=== PATIENT | female | born 1975 | race Caucasian/White ===

== ENCOUNTER → 2017-09-05 08:24 | Outpatient (CLI) | payer OTHER, SELFPAY ==
--- NOTE | 2017-09-05 08:29 | MM_ITS ---
MM Dig screening mamm BI w/CAD CAD Screening COMPARISON: Digital mammograms with CAD 12/01/2015 and 09/27/2014 INDICATION: There is no personal or family history of breast cancer TECHNIQUE: Standard CC and MLO images were obtained. R2 CAD reviewed. FINDINGS: There is a moderately dense and heterogenic parenchymal pattern somewhat lessening the sensitivity of mammography. The findings about the lateral symmetrical. There is no suspicious lesion in either breast and there are no suspicious microcalcifications. IMPRESSION: Moderate breast density with no suspicious lesion seen BI-RADS Category: 1 Negative RECOMMENDED FOLLOW-UP: 1YR - 1 YEAR FOLLOW-UP (A letter has been sent to the patient regarding results of the study.)
== END ==
PROVIDERS: Family Provider Family Medicine; PCP Family Medicine; Visit Provider Obstetrics & Gynecology Gynecology
DX: Z12.31 Encounter for screening mammogram for malignant neoplasm of breast (principal)
CPT/HCPCS: 77067

== ENCOUNTER → 2017-09-26 10:28 | Outpatient (CLI) | payer OTHER, SELFPAY ==
--- NOTE | 2017-09-26 10:32 | US_ITS ---
US thyroid COMPARISON: None HISTORY: Possible thyromegaly TECHNIQUE: October ultrasound the thyroid FINDINGS: The isthmus of the gland is slightly thickened measuring 0.5 cm in diameter. The right lobe measures 1.9 x 4.7 x 3.5 cm. The left lobe measures 1.6 x 4.2 x 2.0 cm. There is a diffuse heterogenic appearance of the parenchyma in each lobe. There is a hypoechoic nodule mid pole right lobe with homogeneous echogenicity measuring 1.1 x 2.2 x 0.7 cm. There is a second isoechoic nodule mid pole measuring 1.1 x 1.5 x 0.8 cm. There is a small hypoechoic nodule lower pole left lobe measuring 0.7 x 0.5 x 0.5 cm. IMPRESSION: Mild thyromegaly with findings of diffuse goiter in addition to small solid nodules in each lobe as described above
== END ==
PROVIDERS: Family Provider Family Medicine; PCP Family Medicine; Visit Provider Family Medicine
DX: E01.0 Iodine-deficiency related diffuse (endemic) goiter (principal)
CPT/HCPCS: 76536

== ENCOUNTER → 2017-10-06 15:54 | Outpatient (CLI) | payer OTHER, SELFPAY ==
[2017-10-06 18:05] LABS: Free Thyroxine Index 2.2 ug/dL (5.93-13.13); T4 (Thyroxine) 6.5 ug/dl (4.7-13.3); Thyroid Stimulating Hormone 4.37 uIU/ml (0.358-3.740); Triiodothryronine (T3) Uptake 34 % (31-39)
[2017-10-09 06:49] LABS: Thyroid Peroxidase Antibodies 369 IU/mL (0-34)
[2017-10-10 15:19] LABS: Calcitonin <2.0 pg/mL (0.0-5.0)
[2017-10-10 15:22] LABS: Thyroid Stimulating Immunoglob <0.10 IU/L (0.00-0.55)
== END ==
PROVIDERS: Visit Provider Otolaryngology
DX: E04.9 Nontoxic goiter, unspecified (principal); E01.0 Iodine-deficiency related diffuse (endemic) goiter
CPT/HCPCS: 36415; 82308; 82330; 84436; 84443; 84445; 84479; 86376

== ENCOUNTER → 2017-10-15 09:44 | Outpatient (CLI) | payer OTHER, SELFPAY ==
--- NOTE | 2017-10-15 09:48 | US_ITS ---
FNA w guidance, FNA w guidance 2nd lesion US thyroid HISTORY: ITS.REASON: dominant right nodule 2.2cm ORDERING PHYSICIAN: Danial Bergman MD PATIENT AGE: 42 years COMPARISON: 09/26/2017 Thyroid ultrasound: Prebiopsy exam performed confirm the presence of an isthmus nodule at 2.2 x 0.7 cm and heterogeneous echogenicity of the thyroid gland with a 2.2 cm nodule in the lower pole on the right. Both of these nodules weren't started for FNA. TECHNIQUE: Patient has a dominant nodule in the lower pole on the right at 2.2 cm. There is also a prominent nodule in the isthmus at 2.2 x 0.7 cm which was also biopsied. Following obtaining informed consent, using aseptic technique and local anesthesia with buffered lidocaine, fine-needle aspiration was performed of each of the 2 nodules of interest using sonographic guidance. 3 passes were made into each nodule with a 25-gauge needle. Specimen was given to cytology. The patient tolerated the procedure well without evidence of immediate complications and left the ultrasound suite in stable condition. CYTOLOGY: Isthmus nodule: Negative for malignancy, consistent with chronic lymphocytic thyroiditis Right lower lobe nodule: Negative for malignancy, consistent with benign follicular nodule IMPRESSION: Successful sonographic guided fine needle aspiration 2 thyroid nodules one at the isthmus and one in the lower pole on the right both showing benign findings. No immediate complication
== END ==
PROVIDERS: Family Provider Family Medicine; PCP Family Medicine; Visit Provider Otolaryngology
DX: E04.1 Nontoxic single thyroid nodule (principal)
CPT/HCPCS: 10022; 76536

== ENCOUNTER → 2018-01-29 13:40 | Outpatient (CLI) | payer OTHER, SELFPAY ==
--- NOTE | 2018-01-29 13:51 | US_ITS ---
US thyroid HISTORY: Thyroid nodules, follow-up biopsy ITS.REASON: goiter ORDERING PHYSICIAN: Danial Bergman MD PATIENT AGE: 42 years Comparison: 09/26/2017 FINDINGS: The right lobe is 4.4 x 1.6 x 3.1 cm. There is diffuse heterogeneous echogenicity. Isthmus nodule is present at 2.2 x 0.5 cm unchanged.. It is difficult to discern definite nodules within the thyroid gland due to the heterogeneous echogenicity. Cortical nodules noted along the lower pole at 15 mm unchanged The left lobe is 4.1 x 1.4 x 1.8 cm with heterogeneous echogenicity. Difficult to discern the cystic nodules with diffuse heterogeneous echogenicity not significantly changed IMPRESSION: Multinodular goiter unchanged
== END ==
PROVIDERS: PCP Family Medicine; Visit Provider Otolaryngology
DX: E04.1 Nontoxic single thyroid nodule (principal); E06.3 Autoimmune thyroiditis; E06.9 Thyroiditis, unspecified
CPT/HCPCS: 76536

== ENCOUNTER → 2018-07-14 08:22 | Outpatient (CLI) | payer OTHER, SELFPAY ==
--- NOTE | 2018-07-14 08:26 | XR_ITS ---
XR hip LT 2-3V w/pelvis HISTORY: ITS.REASON: LEFT HIP PAIN ORDERING PHYSICIAN: Alan Phillips MD PATIENT AGE: 43 years COMPARISON: None FINDINGS: No fracture or dislocation is evident. No significant degenerative change. The left ischium is slightly thicker than the right ischium with slightly increased density. While this could be a variant of normal, and underlying process such as padgets disease could cause this finding. Please correlate with appropriate laboratory values. Bone scan may be of further value if symptoms and clinical findings warrant. IMPRESSION: 1. Mild thickening of the left ischium. Consider bone scan for further evaluation 2. Otherwise negative
== END ==
PROVIDERS: PCP Family Medicine; Visit Provider Family Medicine
DX: M79.652 Pain in left thigh (principal); M25.552 Pain in left hip
CPT/HCPCS: 73502

== ENCOUNTER → 2018-09-09 13:50 | Outpatient (CLI) | payer OTHER, SELFPAY ==
--- NOTE | 2018-09-09 14:00 | US_ITS ---
US thyroid HISTORY: ITS.REASON: Goiter ORDERING PHYSICIAN: Danial Bergman MD PATIENT AGE: 43 years Comparison: 01/29/2018 FINDINGS: The right lobe is 4.7 lobe 1.8 x 2.4 cm. The left lobe is 3.8 x 2.1 x 1.7 cm. There is diffuse heterogeneous echogenicity of both lobes of the thyroid gland and the isthmus with a multinodular appearance. Discrete nodules are difficult to ascertain especially when trying to compare one exam to the next. Overall there does not appear to be significant change IMPRESSION: No change in multinodular goiter
[2018-09-09 16:49] LABS: Free T4 (Free Thyroxine) 0.88 ng/dl (0.76-1.46); Thyroid Stimulating Hormone 4.27 uIU/ml (0.358-3.740)
[2018-09-11 08:19] LABS: Thyroid Peroxidase Antibodies 288 IU/mL (0-34)
[2018-09-11 17:12] LABS: Triiodothyronine (T3) Free 2.7 pg/mL (2.0-4.4)
== END ==
PROVIDERS: PCP Family Medicine; Visit Provider Otolaryngology
DX: E04.9 Nontoxic goiter, unspecified (principal)
CPT/HCPCS: 36415; 76536; 84439; 84443; 84481; 86376

== ENCOUNTER → 2019-01-15 08:36 | Outpatient (CLI) | payer OTHER, SELFPAY ==
[2019-01-15 09:38] LABS: Free T4 (Free Thyroxine) 0.96 ng/dl (0.76-1.46); Thyroid Stimulating Hormone 3.75 uIU/ml (0.358-3.740)
[2019-01-16 18:13] LABS: Thyroid Peroxidase Antibodies 253 IU/mL (0-34)
[2019-01-19 14:59] LABS: Thyroid Stimulating Immunoglob <0.10 IU/L (0.00-0.55)
== END ==
PROVIDERS: Visit Provider Otolaryngology
DX: E03.9 Hypothyroidism, unspecified (principal)
CPT/HCPCS: 36415; 84439; 84443; 84445; 86376

== ENCOUNTER → 2019-01-26 14:35 | Outpatient (CLI) | payer OTHER, SELFPAY | PROVIDERS: Visit Provider Family Medicine | DX: L60.1 Onycholysis (principal) | CPT/HCPCS: 87102; 87206; 87220 ==

== ENCOUNTER → 2019-07-30 13:28 | Outpatient (CLI) | payer OTHER, SELFPAY ==
--- NOTE | 2019-07-30 13:37 | US_ITS ---
PROCEDURE: US THYROID CLINICAL INDICATION: chilango Follow-up nodules COMPARISON: THY US thyroid from 01/29/2018 THY US thyroid from 09/09/2018 FINDINGS: Right lobe: 4.6 x 1.7 x 2.9 cm with diffuse heterogeneous echogenicity with a lobular contour. 1 x 1 x 0.9 cm isoechoic nodule in the lower pole, TR 3. 9 x 5 mm lobular hyperechoic nodule in the lower pole, TR 3 Left lobe: 4.1 x 1.4 x 2 cm with heterogeneous echogenicity. Is difficult to determine definite margins to nodules due to the heterogeneous echogenicity. There is a 12 mm mixed nodule in the lower pole probably unchanged, TR 3 Isthmus: Additional findings: IMPRESSION: Probably no change multinodular goiter. Scanning technique is different compared to the previous exam. Bilateral TR 3 nodules. Suggest 6 month follow-up Dictated by: Eitan Barahona MD 07/31/2019 11:12 Electronically signed by Eitan Barahona MD in [place] 07/31/2019 11:12
[2019-07-30 17:29] LABS: Thyroid Stimulating Hormone 2.81 uIU/mL (0.465-4.68)
[2019-07-30 19:16] LABS: Free T4 (Free Thyroxine) 1.11 ng/dl (0.78-2.19)
[2019-08-01 07:45] LABS: Thyroid Peroxidase Antibodies 226 IU/mL (0-34)
[2019-08-01 08:11] LABS: Triiodothyronine (T3) Free 2.8 pg/mL (2.0-4.4)
[2019-08-03 16:42] LABS: Thyroid Stimulating Immunoglob <0.10 IU/L (0.00-0.55)
== END ==
PROVIDERS: PCP Family Medicine; Visit Provider Otolaryngology
DX: E03.9 Hypothyroidism, unspecified (principal); E06.3 Autoimmune thyroiditis
CPT/HCPCS: 36415; 76536; 84439; 84443; 84445; 84481; 86376

== ENCOUNTER → 2020-02-01 15:12 | Outpatient (CLI) | payer OTHER, SELFPAY ==
--- NOTE | 2020-02-01 15:12 | US_ITS ---
PROCEDURE: US THYROID CLINICAL INDICATION: goiter GOITER; 6 month follow up-heterogeneous tiss through out thyroid-probable nodules seen bilaterally and at isthmus-blood flow noted bilaterally-CINE clips obtained bilaterally COMPARISON: US US THYROID from 07/30/2019 FINDINGS: Right lobe: 1.6cm x 4.4cm x 1.9cm. Left lobe: 1.5cm x 4.0cm x 1.7cm Isthmus: Additional findings: There is diffuse heterogeneous echogenicity. A 7 mm hypoechoic nodules present in the upper pole. There are areas of nodularity diffusely throughout both lobes of the thyroid gland but do not persist on sagittal and longitudinal concordant imaging. Previously the areas of questionable nodularity are less apparent indicating that these areas are likely just diffuse heterogeneous echogenicity as opposed to true nodules. Continued follow-up suggested. IMPRESSION: Mildly enlarged thyroid gland with diffuse heterogeneous echogenicity with no suspicious nodules apparent. Please see above for description. There may be a small 7 mm hypoechoic nodule in the upper pole on the right. Continued follow-up suggested. Dictated by: Eitan Barahona MD 02/02/2020 12:19 Eitan Barahona MD in [facility] 02/02/2020 12:19
[2020-02-01 17:30] LABS: Thyroid Stimulating Hormone 2.38 uIU/mL (0.465-4.68)
[2020-02-03 09:01] LABS: Thyroid Peroxidase Antibodies 192 IU/mL (0-34)
[2020-02-03 12:15] LABS: Triiodothyronine (T3) Free 2.6 pg/mL (2.0-4.4)
[2020-02-05 12:54] LABS: Thyroid Stimulating Immunoglob <0.10 IU/L (0.00-0.55)
== END ==
PROVIDERS: PCP Family Medicine; Visit Provider Otolaryngology
DX: E03.9 Hypothyroidism, unspecified (principal); E04.9 Nontoxic goiter, unspecified
CPT/HCPCS: 36415; 76536; 84439; 84443; 84445; 84481; 86376

== ENCOUNTER → 2020-08-09 15:22 | Outpatient (CLI) | payer OTHER, SELFPAY ==
--- NOTE | 2020-08-09 15:22 | US_ITS ---
PROCEDURE: US THYROID CLINICAL INDICATION: hx goiter COMPARISON: US THY US thyroid from 09/26/2017 US BXTHYROID US organ site (thyroid) from 10/15/2017 US THY US thyroid from 09/09/2018 US US THYROID from 02/01/2020 FINDINGS: Right lobe: 4.9 x 2.2 x 2.1 cm. Diffuse heterogeneous echogenicity with nodular configuration. Discrete nodules are however not well delineated in both sagittal and transverse planes. Left lobe: 4.1 x 1.8 x 1.9 cm. Diffuse heterogeneous echogenicity with nodular contour but without discrete measurable nodules in both sagittal and transverse plane. Isthmus: Thickened at 6 mm. There is an isoechoic solid-appearing nodule in the right aspect of the isthmus at 13 by 13 x 7 mm which is previously biopsied and negative for malignancy. Additional findings: IMPRESSION: Enlarged thyroid gland with diffuse heterogeneous echogenicity. Stable isthmus nodule Dictated by: Eitan Barahona MD 08/09/2020 17:48 Eitan Barahona MD in [place] 08/09/2020 17:48
== END ==
PROVIDERS: PCP Family Medicine; Visit Provider Otolaryngology
DX: E04.9 Nontoxic goiter, unspecified (principal)
CPT/HCPCS: 76536

== ENCOUNTER → 2020-08-21 10:31 | Outpatient (CLI) | payer OTHER, SELFPAY ==
[2020-08-21 12:04] LABS: Free T4 (Free Thyroxine) 1.11 ng/dl (0.78-2.19)
[2020-08-21 12:18] LABS: Thyroid Stimulating Hormone 3.94 uIU/mL (0.465-4.68)
[2020-08-22 09:54] LABS: Thyroid Peroxidase Antibodies 243 IU/mL (0-34)
[2020-08-23 05:16] LABS: Thyroid Stimulating Immunoglob <0.10 IU/L (0.00-0.55)
== END ==
PROVIDERS: Visit Provider Otolaryngology
DX: E04.9 Nontoxic goiter, unspecified (principal)
CPT/HCPCS: 36415; 84439; 84443; 84445; 86376

== ENCOUNTER → 2021-02-16 11:18 | Outpatient (CLI) | payer BC, SELFPAY ==
--- NOTE | 2021-02-16 11:19 | US_ITS ---
PROCEDURE: US THYROID CLINICAL INDICATION: thyroiditis COMPARISON: US THY US thyroid from 09/09/2018 US US THYROID from 02/01/2020 US US THYROID from 08/09/2020 FINDINGS: Right lobe: 4.3 x 2.2 x 2.2 cm. There is diffuse heterogeneous echogenicity with numerous nodular areas. It is difficult to determine if these are true nodules versus areas of heterogeneous echogenicity. There does appear to be a hypoechoic circumscribed nodule in the lower pole at 1.6 by 1.1 cm well-circumscribed wider than tall without calcification. TR level 3 less than 2.5 cm. Left lobe: 4 x 1.8 x 1.8 cm with diffuse heterogeneous echogenicity making it difficult to determine ill-defined nodules versus the heterogeneous echogenicity. Isthmus: Previously noted isthmus nodule is not demonstrated on today's exam. Additional findings: IMPRESSION: Diffuse bilateral heterogeneous echogenicity. Only 1 discrete nodule is well demonstrated in both planes in the lower pole on the right at 1.6 cm not significantly changed. Dictated by: Eitan Barahona MD 02/16/2021 17:56 Eitan Barahona MD in [place] 02/16/2021 17:56
[2021-02-16 13:26] LABS: Free T4 (Free Thyroxine) 1.12 ng/dl (0.78-2.19)
[2021-02-17 08:13] LABS: Thyroid Peroxidase Antibodies 250 IU/mL (0-34)
[2021-02-19 17:18] LABS: Thyroid Stimulating Immunoglob <0.10 IU/L (0.00-0.55)
== END ==
PROVIDERS: PCP Family Medicine; Visit Provider Otolaryngology
DX: E03.9 Hypothyroidism, unspecified (principal); E04.9 Nontoxic goiter, unspecified
CPT/HCPCS: 36415; 76536; 84439; 84443; 84445; 86376

== ENCOUNTER 2024-07-12 14:03 | Outpatient (CLI) | payer BC, SELFPAY ==
[2024-07-14 15:13] LABS: Pancreatic Elastase, Fecal >800 (>200)
== END 2024-07-12 23:59 | disposition home or self-care (01) ==
PROVIDERS: PCP Physician Assistant; Visit Provider Nurse Practitioner Family
DX: R14.0 Abdominal distension (gaseous) (principal)
CPT/HCPCS: 82656